=== PATIENT | female | born 1950 | race Caucasian/White ===

== ENCOUNTER 2020-12-18 07:55 | Observation (INO) ==
--- NOTE | 2020-12-05 07:37 | ANES ---
Anesthesia Pre Procedure Eval HOME MEDICATIONS fluticasone propionate 50 mcg/actuation nasal spray,suspension 1 spray CHRISTOPHER DAILY 04/08/18 [Last Taken Unknown] blood-glucose meter See Dose Instructions .ROUTE .MEDSUPPLY #1 ea 05/13/18 [Last Taken Unknown] betamethasone dipropionate 0.05 % topical cream See Rx Instructions TP .twice weekly #45 g 10/06/18 [Last Taken Unknown] wheat dextrin (with aspartame) 3 gram/6 gram oral powder packet 17 g PO PRN 07/08/19 [Last Taken Unknown] atorvastatin 40 mg tablet 40 mg PO DAILY #90 tab 01/17/20 [Last Taken Unknown] lancets 28 gauge See Dose Instructions .ROUTE .MEDSUPPLY #50 ea 01/19/20 [Last Taken Unknown] blood sugar diagnostic See Rx Instructions .ROUTE .COMPLEX #50 strip 02/06/20 [Last Taken Unknown] acetaminophen 650 mg tablet,extended release 650 mg PO Q8H PRN 04/24/20 [Last Taken Unknown] liothyronine 5 mcg tablet 5 mcg PO DAILY #90 tab 04/25/20 [Last Taken Unknown] metformin 1,000 mg tablet 1,000 mg PO BID #180 tab 08/09/20 [Last Taken Unknown] lisinopril 5 mg tablet 5 mg PO DAILY #90 tab 10/01/20 [Last Taken Unknown] glipizide 10 mg tablet 10 mg PO DAILY #90 tab 10/02/20 [Last Taken Unknown] levothyroxine 125 mcg tablet 125 mcg PO DAILY #90 tab 10/18/20 [Last Taken Unknown] Allergies/Adverse Reactions: Allergies Allergy/AdvReac Type Severity Reaction Status Date / Time ibuprofen [From Advil] AdvReac Severe hallucinati Verified 10/01/20 15:16 on Influenza Virus Vaccines AdvReac Severe numbness Verified 10/01/20 15:16 in lips, muscle weakness casein AdvReac Mild full body Verified 10/01/20 15:16 aches, lisinopril AdvReac Mild urinary Verified 10/09/20 15:23 hesitancy egg AdvReac muscle Verified 10/01/20 15:16 aches, sleep pain - Planned Procedure Planned Procedure: R Arthroplasty Total Knee Medication List Reviewed:: Yes Allergies Verified: Yes Medical History (Last Reviewed 12/05/20 @ 07:35 by José Manuel Longoria CRNA) Greater trochanteric bursitis of left hip (Chronic) Hyperlipidemia (Chronic) Hypothyroidism (Chronic) Anemia (Chronic) Diabetes (Chronic) Influenza vaccination declined Onset Date: ~08/11/18 Refused Streptococcus pneumoniae vaccination Onset Date: ~08/11/18 Diabetes mellitus, type II Onset Date: Unknown Endometrial hyperplasia Onset Date: 02/10/12 w/o atypia Hypothyroid Onset Date: ~1979 Lichen sclerosus Onset Date: 01/15/15 Osteoarthritis Onset Date: Unknown Anemia Onset Date: 05/31/13 macrocytic on previous labs c/w b12 or folate def. anemia which would explain sx. B12 deficiency Onset Date: Unknown Chickenpox Onset Date: Unknown Hyperlipidemia Onset Date: 05/10/14 work on diet and exercise and add CO-Q10 200mg daily to regimen. Measles Onset Date: Unknown Mumps Onset Date: Unknown Paresthesia of hand Onset Date: 05/31/13 Postmenopausal bleeding Onset Date: Unknown Rectal bleeding Onset Date: 12/01/02 / Urge incontinence Onset Date: Unknown Surgical History (Last Reviewed 12/05/20 @ 07:35 by José Manuel Longoria CRNA) H/O colonoscopy Onset Date: 02/02/19 12/01/0258-[id number]. 10/22/05 Mac-tubular adenoma. 10/25/08 Mac - hyperplastic polyp. 02/02/19 Liz-very redundant colon. Recheck 10 yrs. H/O colposcopy with cervical biopsy Onset Date: ~1989 History of cryosurgery Onset Date: ~1989 History of dilation and curettage Onset Date: 07/06/12 History of esophagogastroduodenoscopy (EGD) Onset Date: 10/25/08 [place]ared 10/22/05-moderate/severe chronic gastritis. 04/21/07-negative. 10/25/08- mild gastritis. History of tonsillectomy Onset Date: Unknown Hx of cholecystectomy Onset Date: 1997 lap Status post hysteroscopy Onset Date: 07/06/12 endometrial hyperplasia Rocky teeth extracted Onset Date: Unknown Family History (Last Reviewed 12/05/20 @ 07:35 by José Manuel Longoria CRNA) Aunt Diabetes Hypothyroidism Colon cancer paternal Father Myocardial infarction Heart disease CVA (cerebral vascular accident) Hypertension Parkinson's disease CHF (congestive heart failure) Hyperlipemia Hx of CABG Grandmother , maternal Epilepsy Heart disease Seizures Grandmother , paternal Heart disease Seizures Grandfather , paternal Heart disease Seizures Grandfather , maternal Heart disease Seizures Mother Anemia Arthritis Colitis w/ total colectomy and ileostomy Diabetes Hypothyroidism CHF (congestive heart failure) Gastric ulcer Sister Hypothyroidism Colitis Hyperlipemia - Family Anesthesia History Family History:: no untoward family reactions to anesthesia, no familial bleeding tendencies, no family history of clotting disorders, no family history of premature - Respiratory Smoking Status: Never smoker Discussed smoking cessation including day of surgery: No Sleep Apnea currently treated: No Sleep Apnea by current assessment: No Discussed Risks/Treatment of DURAN: No - Cardiovascular Tolerate Activity: Fair Heart Sounds: S1 & S2, Regular - Anesthesia Assessment and Plan ASA Class: PS, III Anesthesia Type Plan: Block - Right ultrasound guided adductor canal nerve block for postop analgesia, Spinal
[~2020-12-18 07:55] MED LIST: MORPHINE SULFATE 15 MG TABLET.SA PO PRN; ROPIVACAINE/CLONIDIN/KETOROLAC 50 ML SYRINGE IJ ONE; ROPIVACAINE/CLONIDIN/KETOROLAC 50 ML SYRINGE IJ PRN; TRANEXAMIC ACID 1,000 MG in NORMAL SALINE 100 ML IV PRN; ceFAZolin SODIUM 1 GM VIAL IV PRN; ceFAZolin SODIUM 1 GM VIAL ONE
[2020-12-18] MEDS: RINGER'S SOLUTION,LACTATED 1,000 ML IV PRN ×3 (08:18→11:25)
[2020-12-18] MEDS ORDERED: HYDROmorphone HCL 2 MG/ML VIAL IV PRN (08:19)
[2020-12-18] MEDS ORDERED: ONDANSETRON HCL/PF 2 MG/ML VIAL IV PRN ×2 (08:19→11:39)
[2020-12-18] MEDS ORDERED: diphenhydrAMINE HCL 50 MG/ML VIAL IV PRN ×2 (08:19→11:39)
[2020-12-18] MEDS ORDERED: NALOXONE HCL 0.4 MG/ML VIAL IV PRN (08:19)
[2020-12-18] MEDS ORDERED: PROCHLORPERAZINE EDISYLATE 5 MG/ML VIAL IV PRN (08:19)
[2020-12-18] MEDS ORDERED: LIDOCAINE HCL 20 ML VIAL ONE (08:43)
[2020-12-18] MEDS ORDERED: BUPIVACAINE HCL/EPINEPHRINE 50 ML VIAL ONE (08:44)
[2020-12-18] MEDS ORDERED: PROPOFOL VIAL IV ONE (08:44)
[2020-12-18] MEDS ORDERED: fentaNYL CITRATE/PF 50 MCG/ML AMPUL ONE (08:44)
[2020-12-18] MEDS ORDERED: ONDANSETRON HCL/PF 2 MG/ML VIAL ONE (08:44)
[2020-12-18] MEDS ORDERED: MAGNESIUM HYDROXIDE 30 ML UDC PO PRN (11:39)
[2020-12-18] MEDS ORDERED: RINGER'S SOLUTION,LACTATED 1,000 ML IV PRN (11:39)
[2020-12-18] MEDS ORDERED: MORPHINE SULFATE 2 MG/ML DISP.SYRIN IV PRN (11:39)
[2020-12-18] MEDS ORDERED: MAG HYDROX/ALUMINUM HYD/SIMETH 30 ML UDC PO PRN (11:39)
[2020-12-18] MEDS ORDERED: ZOLPIDEM TARTRATE 5 MG TABLET PO PRN (11:39)
[2020-12-18] MEDS ORDERED: ACETAMINOPHEN 500 MG TABLET PO PRN (11:39)
--- NOTE | 2020-12-18 11:39 | OR ---
Operative Report - Dictated Report Narrative: Date: 12/18/2020 Preoperative diagnosis: Right knee degenerative joint disease. Postoperative diagnosis: Right knee degenerative joint disease. Procedure: Right total knee arthroplasty. Surgeon: James Mares M.D. Service Desk Analyst: Galileo Rodríguez PA-C (provided and essential set of skilled, educated hands that assisted with transfer, positioning, prepping, draping, manipulation, retraction, placement of jigs, injection, insertion of implants, irrigation, closure wounds, and dressings all of which could not be performed by the available surgical crew) Anesthesia: Spinal with regional block and local periarticular joint injection. Complications: None Specimens: Bone. Estimated blood loss: Minimal. Tourniquet time: 85 minutes at 325 millimeters of mercury. Retained implants: Depuy Attune size 5 right lugged cemented posterior stabilized femoral component. Size 5 fixed-bearing cemented tibial platform. 5 by 10 millimeter posterior stabilized cross-linked tibial insert. 35 millimeter medialized patella button. Indications: Mrs. Mckeon is a 70-year-old female who has had longstanding right knee pain and arthrosis. This patient was followed in my clinic for period of time with significant complaints of right knee pain consistent with arthritic changes. She had failed conservative measures including, but not limited to, activity modification, passage of time, medications, and other conservative measures. Patient wished to proceed with surgical treatment. The risks, benefits, and alternatives were discussed in clinic. The risks of , blood clots, bleeding, infection, nerve/tendon blood vessel/ injury, malposition of components, intraoperative fracture, postoperative limited range of motion, persistent pain, failure of components, and need for additional procedures. Patient wished to proceed consent was obtained after answering all questions. Procedure: After marking the correct extremity on the floor, the patient was taken to the operating room. A timeout was performed. IV antibiotics consisting of Ancef were administered prior to the procedure. A regional followed by spinal anesthetic was induced by anesthesia, per my request, on the operative table with all bony prominences well-padded. Turpin catheter was placed, and a bump was placed under the operative side buttock. SCDs and POLLY hose were utilized on the nonoperative leg. A well-padded tourniquet was applied to the operative thigh. The operative leg was then pre-scrubbed with alcohol, prepped, and draped in a standard sterile fashion. After exsanguinating the extremity with an Esmarch bandage, the tourniquet was inflated. After marking out the anterior knee for standard incision centered over the patella, the skin was incised and dissected down to the joint retinaculum. The joint retinaculum was marked out as well as the horizontal axis of the patella, and a standard medial parapatellar arthrotomy was then made. The most proximal aspect of the quadriceps tendon and the patella tendon insertion were protected from release. A partial synovectomy was performed as well as a resection of the infrapatellar fat pad. The distal femoral fat pad proximal to the trochlea was also resected using cautery. The soft tissues were elevated off the medial as pect of the proximal tibia using a Cotton elevator ensuring that we did not transect the medial collateral ligament. Upon initial evaluation range of motion was approximately 0 degrees to 130 degrees of flexion. There were signs of advanced arthrosis in the medial and patellofemoral greater than lateral joint spaces. There were large marginal osteophytes which were removed with a rongeur. The knee was hyperflexed and the patella was tucked laterally. Protecting the surrounding soft tissues with Homans, an entry drill was placed down the femoral canal using Whitesides line for guidance into the entry point. The intramedullary femoral alignment sotero was utilized in order to cut the distal femur in 5 degrees of valgus resecting 10 millimeters of bone. It was noted that she had quite soft bone consistent with decreased mineralization. Next the distal femur was sized to a size 5. A posterior referencing guide was utilized to place the distal femoral cutting block in 3 degrees of external rotation. This was pinned into place. The rotation was confirmed both visually and based on anatomic landmarks. The 4 in 1 cutting jig of the appropriate size was utilized in order to make all bony cuts. The lori wing was used to ensure no notching. Retractors were utilized in order to protect surrounding soft tissues. This cut did not result in any excessive notching. We then cut the box centered over the distal femur. This allowed for resection of the anterior and posterior cruciate ligaments. I then turned my attention to the preparation of the tibia. Using an extra medullary tibial alignment sotero, 3 millimeters of bone was resected off the medial articular surface. This was made perpendicular to the mechanical axis of the joint with the alignment sotero centered over the ankle mortise. The alignment sotero was checked and was noted to be parallel to the mechanical axis, centered over the medial one third of the tibial tubercle, paralleling the anterior surface of the tibia. We then turned our attention to the remaining meniscus and soft tissues. These were removed while protecting the surrounding ligaments and soft tissues. The marginal osteophytes off the anterior, posterior, medial, lateral aspects of the femur and tibia were removed. The tibia was sized out to a size 5. Next the tibia was drilled and punched in an externally rotated position. Next the trial femur and a series of tibial inserts were utilized in order to allow for full extension and maximal flexion. It was found that a 10 millimeter insert gave the best range of motion and stability at multiple flexion points as well as at full extension there was less than 2 mm of gapping both medially and laterally. There is minimal anterior translation with the knee at 90 degrees of flexion and no signs of being able to dislocate the knee. The patella was then prepared. The initial thickness was 22 millimeters. This was reamed down to 13 millimeters parallel to the anterior surface of the patella. It was sized out to a size 35 medialized patella button. This was then drilled and trialed. Without any medial restraint the patella tracked appropriately and did not sublux or dislocate. At this point, it was felt these were the appropriate sized implants, and all trials were removed. The standard periarticular joint injection consisting of ropivacaine, Toradol, and epinephrine were injected into the periarticular joint tissues. The bony surfaces were thoroughly irrigated with a pulsatile-suction saline irrigation device. A bone plug from the prior resected anterior chamfer cut was placed into the drill hole at the distal femur. The bony surfaces were then dried in preparation for placement of the implants. The cement was vacuum mixed per the tile layer's instructions. The cement was placed on the dry bony surfaces and posterior aspect of the implants. The implants were impacted into place, removing all extruded cement. At this point anesthesia administered tranexamic acid per protocol intravenously. The knee was placed in extension with axial loading with the trial insert while the cement cured. Once the cement cured, all remaining extruded cement was removed. The knee was placed through a range of motion with the trial insert to ensure appropriate range of motion and stability. Final range of motion was approximately 0 to 130 degrees. The knee was again thoroughly irrigated with pulsatile saline lavage. The final polyethylene insert was then impacted into place ensuring no retained soft tissues. The remaining periarticular joint injection was injected. A medium Hemovac drain was placed exiting superior laterally. The knee was then placed over a triangle and the arthrotomy was closed with interrupted #1 Vicryl after thoroughly irrigating the joint. The deep and subcutaneous tissues were closed with interrupted 0 and 3-0 Vicryl respectively. Skin was closed with a running subcutaneous 3-0 Monocryl and Prineo Dermabond dressing. 4 x 4's, Sof-Rol, and a full leg Stuart wrap were applied. All sponge, needle, blade, and instrument counts were correct prior to closing the wounds. Postoperative condition: The patient was awoken and transferred to the postanesthesia care unit in stable condition. Plan is to be admitted to the inpatient medical/surgical floor postoperatively for 24 hours of IV antibiotics, physical therapy, occupational therapy, and medical comanagement. Patient will be weightbearing as tolerated with range of motion as tolerated. DVT prophylaxis will be with SCDs, POLLY hose, and pharmacological anticoagulation. Anticipated hospital stay is approximately 1-3 days.
[2020-12-18] MEDS ORDERED: PSYLLIUM SEED 1 PACKET PACKET PO PRN (11:42)
--- NOTE | 2020-12-18 11:49 | ANES ---
Post Anesthesia Discharge - Transfer of Care Transfer of Care handoff given to nurse: Yes - Discharge from PACU Discharge from PACU when meets criteria: Yes - Discharge to ASU Discharge to ASU-no complications/pt stable: Yes
--- NOTE | 2020-12-18 11:53 | ANES ---
Anesthesia Procedure Note Procedure Note: ANESTHESIA PROCEDURE NOTE Date of Procedure: 12/18/2020. Time of procedure: 924. Performed by: José Manuel Longoria CRNA Die Cut Operator: None. Preprocedure diagnosis: Right knee degenerative joint disease. Post procedure diagnosis: Same. Procedure: Right ultrasound guided adductor canal block for postoperative analgesia. Indications: The patient is a 70-year-old female, requesting right ultrasound- guided abductor canal nerve block for postoperative analgesia related to right total knee arthroplasty. Findings: See below. Details of the procedure: The tissue over the intended target site was cleansed with ChloraPrepand draped in a sterile fashion. 2 ml Lidocaine 1 % was infiltrated to the skin and subcutaneous tissue at the intended target site. Under sterile technique and ultrasound guidance a 20-gauge block needle was inserted through the right sartorius muscle to the saphenous nerve just anterior and medial to the superficial femoral artery and vein. 15 mL's of 0.5% bupivacaine plus epinephrine 1-200,000 was injected after negative aspiration for blood. Needle tip and spread of local anesthetic surrounding the saphenous nerve was observed throughout the injection with real time ultrasound visualization. The needle was then removed intact. No complications were noted. The images were retained in the Hospital medical database. EBL: Minimal. Fluids: N/A. Specimen: N/A. Post procedure condition: The patient tolerated the procedure well. No complications were noted. Thank you for this consultation. José Manuel Longoria CRNA
[2020-12-18] MEDS ORDERED: LEVOTHYROXINE SODIUM 125 MCG TABLET ONE (12:25)
[2020-12-18] MEDS: LIOTHYRONINE SODIUM 5 MCG TABLET PO SCH (12:56)
[2020-12-18] MEDS: LEVOTHYROXINE SODIUM 125 MCG TABLET PO SCH (12:57)
[2020-12-18] MEDS: ceFAZolin SODIUM 1 GM in DEXTROSE 5 % IN WATER 100 ML IV SCH ×4 (12:59→20:08)
[2020-12-18] MEDS: oxyCODONE HCL/ACETAMINOPHEN 1 TAB TABLET PO PRN ×2 (14:07→18:36)
[2020-12-18] MEDS: MORPHINE SULFATE 15 MG TABLET.SA PO SCH (20:43)
[2020-12-18] MEDS ORDERED: SENNOSIDES/DOCUSATE SODIUM 1 TAB TABLET PO SCH (21:00)
[2020-12-19] MEDS: ceFAZolin SODIUM 1 GM in DEXTROSE 5 % IN WATER 100 ML IV SCH ×2 (01:33)
[2020-12-19] MEDS: LEVOTHYROXINE SODIUM 125 MCG TABLET PO SCH (06:02)
[2020-12-19] MEDS: LIOTHYRONINE SODIUM 5 MCG TABLET PO SCH ×2 (06:15→09:35)
[2020-12-19 06:22] LABS: Hematocrit 34.8 % (37.0-47.0); Hemoglobin 10.8 gm/dL (12.5-16.0); Mean Cell Volume 93.3 fl (78-100); Mean Platelet Volume 9.5 fl (8-12.5); Platelet Count 246 K/mm3 (150-450); Red Blood Count 3.73 M/mm3 (4.2-5.4); Red Cell Distribution Width 13.6 % (11.5-14.0); White Blood Count 5.6 K/mm3 (4.0-10.5)
[2020-12-19 06:27] LABS: Anion Gap 8.9 mmol/L (6.8-13.8); Calcium * 8.7 mg/dL (7.9-10.9); Carbon Dioxide 30.1 mmol/L (24-32.6); Estimated Creat Clear 69.8
[2020-12-19] MEDS: oxyCODONE HCL/ACETAMINOPHEN 1 TAB TABLET PO PRN ×2 (06:30→12:34)
[2020-12-19] MEDS ORDERED: LEVOTHYROXINE SODIUM 125 MCG TABLET PO SCH (07:00)
[2020-12-19] MEDS ORDERED: ROSUVASTATIN CALCIUM 20 MG TABLET PO SCH (09:00)
[2020-12-19] MEDS ORDERED: FLU VACC QS2020-21(6MOS UP)/PF 60 MCG/0.5 ML SYRINGE IM ONE (09:00)
[2020-12-19] MEDS ORDERED: glipiZIDE 10 MG TABLET PO SCH (09:00)
[2020-12-19] MEDS ORDERED: LIOTHYRONINE SODIUM 5 MCG TABLET PO SCH (09:00)
[2020-12-19] MEDS: MORPHINE SULFATE 15 MG TABLET.SA PO SCH (09:48)
[2020-12-19] MEDS ORDERED: ENOXAPARIN SODIUM 40 MG/0.4 ML SYRG SC SCH (10:40)
--- NOTE | 2020-12-19 12:21 | DS ---
(1) Status post right knee replacement Problem: Acute (2) Hyperlipidemia Problem: Chronic Qualifiers: (3) Hypothyroidism Problem: Chronic Qualifiers: (4) Diabetes Problem: Chronic Qualifiers: Date of Discharge:: 12/19/20 Hospital Course: Mrs. Mckeon was admitted to the floor after undergoing right total knee arthroplasty. Tolerated this well. Was admitted to the floor postoperatively for 24 hours of IV antibiotics, pain control, medical comanagement, and occupational and physical therapy. OT and PT were consulted to assist with activities of daily living and ambulation. Was made weightbearing as tolerated with range of motion as tolerated. Pain was initially controlled with IV regimen. This was transitioned to oral once tolerating a by mouth intake. Was resumed on home diet and medications. Had a Turpin catheter inserted and the operating room which was discontinued on postoperative day 1. A drain was placed intraoperatively into the knee which was discontinued on postoperative day 1. Lovenox SCD and POLLY hose were utilized for DVT prophylaxis. Vital signs remained stable to the hospital course. Serial labs were obtained which showed a final hemoglobin of 10.8 grams. BMP was reviewed and was stable. Physical examination throughout the hospital course showed an extremity that had sensation that was intact to light touch, palpable pulses, a benign wound, motor intact to the toes, ankle, and knee. Knee range of motion was approximately 5 degrees to 70 degrees. Once an oral pain regimen was tolerated and physical therapy goals were met, it was felt that they were stable for discharge to home. Instructions: Continue with weightbearing as tolerated and range of motion as tolerated. It is OK to shower on the wound if it is not draining. If you note any drainage or for comfort you can cover with dry gauze and tape. Change every 2-3 days as needed. Continue with physical therapy. Resume home diet. Report any fever over 101.5 Fahrenheit, uncontrolled pain, increased drainage, foul odor of drainage, new or increased calf pain or shortness of breath, or any other significant complaints. A 325mg dialy aspirin will be started after finishing anticoagulation if not allergic. Continue with POLLY hose on the operative extremity until instructed otherwise. No driving until instructed otherwise. Follow up in approximately 10-14 days. Procedures Performed: see notes below List Procedures: Right total knee arthroplasty Results and Findings: Lab Pending Results 12/19/20 06:18: WBC 5.6, RBC 3.73 L, Hgb 10.8 L, Hct 34.8 L, MCV 93.3, MCH 29.0, MCHC 31.0 L, RDW 13.6, Plt Count 246, MPV 9.5 12/19/20 06:18: Sodium 136, Plasma Sodium 137, Potassium 4.0, Chloride 101, Carbon Dioxide 30.1, Anion Gap 8.9, BUN 9, Creatinine 0.75, Est GFR (Non-Af Amer) 82 D, BUN/Creatinine Ratio 12.0, Random Glucose 186 H, Calcium 8.7 Discharge Location: Home Disposition: Home self-care Condition: Good Discharge Activity: Activity as tolerated, Weight bearing - With wheeled walker Discharge Diet: Consistent carbs Problem Oriented Discharge Instructions to Patient/Family: Total Knee Replacement, Care After, [id number] Additional Patient Instructions (free text): [facility] Physical Therapy appointment is December 20 at 1:30 p.m. [facility] Orthopedic follow up appointment is ThursdayJanuary 07 at 9:00 a.m. Prescriptions (Any new or edited meds): Enoxaparin Sodium [Lovenox] 40 mg SC Q24H #7 disp.syrin Transmission Status: Pending to [facility] #[id number] Morphine Sulfate [Ms Contin] 15 mg PO Q12H #20 tablet.sa Transmission Status: Received by [facility] #[id number] oxyCODONE HCL/ACETAMINOPHEN [Percocet 5 MG/325 MG] 2 tab PO Q4H PRN #56 tab PRN Reason: Moderate Pain (Pain Scale 4-6) Transmission Status: Received by [facility] #[id number] Sennosides/Docusate Sodium [Senokot-S] 2 tab PO HS #30 tab Transmission Status: Pending to [facility] #[id number] Complete Home Medications List: Complete Home Medication List: betamethasone dipropionate 0.05 % topical cream See Rx Instructions TP .twice weekly #45 g 10/06/18 atorvastatin 40 mg tablet 40 mg PO DAILY #90 tab 01/17/20 acetaminophen 650 mg tablet,extended release 650 mg PO Q8H PRN 04/24/20 liothyronine 5 mcg tablet 5 mcg PO DAILY #90 tab 04/25/20 metformin 1,000 mg tablet 1,000 mg PO BID #180 tab 08/09/20 glipizide 10 mg tablet 10 mg PO DAILY #90 tab 10/02/20 levothyroxine 125 mcg tablet 125 mcg PO DAILY #90 tab 10/18/20 Wheat Dextrin [Benefiber] 17 gm PO DAILY PRN 12/05/20 Enoxaparin Sodium [Lovenox] 40 mg SC Q24H #7 disp.syrin 12/19/20 Morphine Sulfate [Ms Contin] 15 mg PO Q12H #20 tablet.sa 12/19/20 Sennosides/Docusate Sodium [Senokot-S] 2 tab PO HS #30 tab 12/19/20 oxyCODONE HCL/ACETAMINOPHEN [Percocet 5 MG/325 MG] 2 tab PO Q4H PRN #56 tab 12/19/20 Amb Orders for Discharge: PT Evaluation and Treatment* Facility: [facility], Location: Rehabilitation Services Forms: Patient Portal Registration
[2020-12-19 13:40] VITALS: BP 117/73
== END 2020-12-19 14:19 | disposition home or self-care (01) ==
LOC: MS 07:55 → SUR 07:55
PROVIDERS: ADMIT Orthopaedic Surgery; ATTEND Orthopaedic Surgery
DX: Z78.0 Asymptomatic menopausal state; D64.9 Anemia, unspecified; M17.11 Unilateral primary osteoarthritis, right knee; E78.5 Hyperlipidemia, unspecified; M85.80 Other specified disorders of bone density and structure, unspecified site; E11.9 Type 2 diabetes mellitus without complications; E03.9 Hypothyroidism, unspecified